=== PATIENT | male | born 1955 | race Caucasian/White ===

== ENCOUNTER 2017-12-25 06:14 | Emergency (ER) | payer OTHER, SELFPAY ==
[2017-12-25 06:15] VITALS: BP 132/76; PULSE 101; RESP 20; TEMP 36.9; O2SAT 94; BMI 28.1
[2017-12-25 06:33] LABS: Bacteria 0 SEEN /hpf (None Seen); Mucous, Urine 0 SEEN /hpf (<or=2+); Squamous Epithelial Cells - UA 0 SEEN /hpf (0-5)
[2017-12-25 06:37] LABS: Color, Urine Red (Yellow); Glucose, Dipstick Normal (Normal); Ketone-Dipstick 15 mg/dl (Negative); Leukocyte Esterase-Dipstick 100 /ul (Negative); Nitrite-Dipstick Negative (Negative); Occult Blood-Urine 250 /ul (Negative); Protein-Dipstick 500 mg/dl (Negative); Urine Bilirubin Dipstick Negative (Negative); Urine Clarity Turbid (Clear); Urine Urobilinogen Normal (Normal)
[2017-12-25 06:44] LABS: Red Blood Cells-Urine > 100 SEEN /hpf (0-5); White Blood Cells >100 SEEN /hpf (0-5)
--- NOTE | 2017-12-25 07:09 | ED.VISSUMM ---
- ER Visit Summary Date of Service: 12/25/17 Chief Complaint: Bleeding with urination History of Present Illness: The patient is a 62 M past medical history of [id number] diabetes and hypertension. Prior appendectomy. Denies any prior urologic surgeries. He states at 3:00 this morning he started having bloody urine. And difficulty urinating. States he did not feel like he can empty his bladder and had to urinate every 20 minutes or so. Also said he was having painful urination. Denies any recent instrumentation. He is on no blood thinners besides a baby aspirin. Denies any bruising, bloody nose, melena or rectal bleeding. Physical Examination: Well-appearing middle-age male. Vital signs are stable afebrile. H EENT exam unremarkable neck nontender lungs there to auscultation bilaterally. Heart regular rhythm no murmur. Abdomen is soft nondistended normal bowel sounds. Mildly tender over the bladder. Not significantly distended. Sternal exam unremarkable nontender. Moving all 4 extremities. No edema. Neurologically is awake and alert with no focal motor deficits. Test Results: UA showed greater than 100 white cells and greater than 100 red blood cells. No bacteria. No nitrites. A culture was sent. Emergency Department Course and Treatment: Nurse place a 22 [place]ri[place] Sorto catheter irrigated until clear. Patient tolerated well. Currently is doing well repeat exam at 0703. a.m. Treatment Plan: Acute gross hematuria with secondary to possible UTI. Urine culture was sent. He will be started on Keflex 4 times daily for 7 days. He will follow-up with Dr. Herrera or a urologist in the [place] system for further evaluation. He understands if he has continued gross hematuria he may need cystoscopy. Disposition: Discharge Impression: Acute gross hematuria secondary to UTI This note was generated with [facility] dictation software. It may contain incorrect words, spelling, and punctuation that were not noted in review of the chart prior to signing ED Disposition - Plan for ED Patient: Chief Complaint: Complaint Referrals: [facility] [Primary Care Provider] -
--- NOTE | 2017-12-25 07:12 | ED.DCSUM_ITS ---
- ER Visit Summary Date of Service: 12/25/17 Chief Complaint: Bleeding with urination History of Present Illness: The patient is a 62 M past medical history of non- insulin-dependent diabetes and hypertension. Prior appendectomy. Denies any prior urologic surgeries. He states at 3:00 this morning he started having bloody urine. And difficulty urinating. States he did not feel like he can empty his bladder and had to urinate every 20 minutes or so. Also said he was having painful urination. Denies any recent instrumentation. He is on no blood thinners besides a baby aspirin. Denies any bruising, bloody nose, melena or rectal bleeding. Physical Examination: Well-appearing middle-age male. Vital signs are stable afebrile. H EENT exam unremarkable neck nontender lungs there to auscultation bilaterally. Heart regular rhythm no murmur. Abdomen is soft nondistended normal bowel sounds. Mildly tender over the bladder. Not significantly distended. Sternal exam unremarkable nontender. Moving all 4 extremities. No edema. Neurologically is awake and alert with no focal motor deficits. Test Results: UA showed greater than 100 white cells and greater than 100 red blood cells. No bacteria. No nitrites. A culture was sent. Emergency Department Course and Treatment: Nurse place a 22 [place] Sorto catheter irrigated until clear. Patient tolerated well. Currently is doing well repeat exam at 0703. a.m. Treatment Plan: Acute gross hematuria with secondary to possible UTI. Urine culture was sent. He will be started on Keflex 4 times daily for 7 days. He will follow-up with Dr. Herrera or a urologist in the [place] system for further evaluation. He understands if he has continued gross hematuria he may need cystoscopy. Disposition: Discharge Impression: Acute gross hematuria secondary to UTI This note was generated with [facility] dictation software. It may contain incorrect words, spelling, and punctuation that were not noted in review of the chart prior to signing ED Disposition - Plan for ED Patient: Chief Complaint: Complaint Referrals: [facility] [Primary Care Provider] -
--- NOTE | 2017-12-25 07:12 | ED.DEP ---
ED Disposition - Plan for ED Patient: Disposition: Home or Assisted Living Chief Complaint: Complaint Instructions: ED UTI Cystitis Male, What is Hematuria? Prescriptions: Cephalexin [Keflex] 500 mg PO Q6 #30 cap Referrals: Toribio Be MD [STAFF PHYSICIAN] - As soon as possible Additional Instructions: Plenty fluids. Call follow-up with Dr. Bossman Herrera of urology or see a urologist in [place] system. The blood may be from a urinary tract infection it could also be from other causes. The continues you will need a cystoscopy of your bladder. A urine culture was sent and should return in 1-2 days. He will be started on antibiotic Keflex 1 pill 4 times a day till gone for the possible UTI.
--- NOTE | 2017-12-25 07:15 | DCINST.ED_ITS ---
ED Disposition - Plan for ED Patient: Disposition: Home or Assisted Living Chief Complaint: Complaint Instructions: ED UTI Cystitis Male, What is Hematuria? Prescriptions: Cephalexin [Keflex] 500 mg PO Q6 #30 cap Referrals: Toribio Be MD [STAFF PHYSICIAN] - As soon as possible Additional Instructions: Plenty fluids. Call follow-up with Dr. Bossman Herrera of urology or see a urologist in [place] system. The blood may be from a urinary tract infection it could also be from other causes. The continues you will need a cystoscopy of your bladder. A urine culture was sent and should return in 1-2 days. He will be started on antibiotic Keflex 1 pill 4 times a day till gone for the possible UTI.
[2017-12-25] MEDS: Cephalexin 250 MG Capsule 500 MG PO (07:18)
== END 2017-12-25 07:21 | disposition home or self-care (01) ==
PROVIDERS: Emergency Provider Emergency Medicine
DX: R31.0 Gross hematuria (principal); N39.0 Urinary tract infection, site not specified; I10 Essential (primary) hypertension; E11.9 Type 2 diabetes mellitus without complications; Z72.0 Tobacco use; Z79.84 Long term (current) use of oral hypoglycemic drugs; Z79.82 Long term (current) use of aspirin; Z79.899 Other long term (current) drug therapy
CPT/HCPCS: 51702; 81001; 87086; 87088; 87186; 99283; A4216

== ENCOUNTER 2017-12-26 11:49 | Emergency (ER) | payer OTHER, SELFPAY ==
[2017-12-26 11:52] VITALS: BP 107/61; PULSE 129; RESP 17; TEMP 36.5; O2SAT 95; BMI 27.1
--- NOTE | 2017-12-26 12:04 | ED.VISSUMM ---
- ER Visit Summary Date of Service: 12/26/17 Chief Complaint: Need for Sorto catheter removal [] History of Present Illness: The patient is a 62 M [presents to the emergency department requesting to have his Sorto catheter removed. Patient states that he was seen in the emergency department 2 days ago and had a Sorto catheter placed due to hematuria and possible urinary tract infection. Patient was started on Keflex. Patient states that his urine has cleared up and no longer has hematuria. Patient denies dysuria. Patient denies fever. He denies vomiting. He denies back pain.] Physical Examination: HEENT-PERRLA, EOMI. Cranial nerves II through XII grossly intact. TMs clear. Mucous membranes moist. No adenopathy. Cardiovascular-regular rate and rhythm without murmur or ectopy Lungs-clear to auscultation, chest wall stable without crepitus or subcu emphysema Abdomen-normoactive bowel sounds, soft, nontender, no rebound or rigidity, no peritoneal signs. exam-patient has Sorto catheter in place and there is no evidence of blood in the Sorto bag. Extremities-intact ?4, normal range of motion, normal pulses, atraumatic[] Test Results: [None indicated] Emergency Department Course and Treatment: [Sorto catheter was removed. Patient did not want to wait in the emergency department to see if he can void on his own and states that if he has any issues he will return to the ER.] I reviewed patient's urine culture results which did grow out E. coli. Treatment Plan: [Patient to continue with his Keflex until the course has been finished.] Disposition: [Discharged home in stable condition] Impression: [Sorto catheter removal UTI Hematuria-resolved] This note was generated with [employer] dictation software. It may contain incorrect words, spelling, and punctuation that were not noted in review of the chart prior to signing ED Disposition - Plan for ED Patient: Chief Complaint: Sorto C/O Referrals: [facility] [Primary Care Provider] -
--- NOTE | 2017-12-26 12:06 | ED.DEP ---
ED Disposition - Plan for ED Patient: Chief Complaint: Sorto C/O Instructions: ED UTI Cystitis Male Referrals: [place] [Primary Care Provider] - As Needed
[2017-12-26 12:16] VITALS: PULSE 108; RESP 17; O2SAT 98
== END 2017-12-26 12:34 | disposition home or self-care (01) ==
PROVIDERS: Emergency Provider Emergency Medicine
DX: N39.0 Urinary tract infection, site not specified (principal); Z46.6 Encounter for fitting and adjustment of urinary device; R31.9 Hematuria, unspecified; E11.9 Type 2 diabetes mellitus without complications; I10 Essential (primary) hypertension; Z72.0 Tobacco use; Z79.84 Long term (current) use of oral hypoglycemic drugs; Z79.82 Long term (current) use of aspirin; Z79.899 Other long term (current) drug therapy
CPT/HCPCS: 99282

== ENCOUNTER → 2021-04-28 07:52 | Outpatient (CLI) | payer OTHER, SELFPAY ==
--- NOTE | 2021-04-28 07:55 | AAAS_ITS ---
Reason For Study: screening, nicotine dependency Aorta Measurements Aorta Doppler Measurements Proximal aorta measures1.86 x 1.87cm. in cross- Peak systolic flow velocities within the proximal sectional axis. aorta measure 66.3 cm/sec. Proximal aorta measures1.78cm. in longitudinal Peak systolic flow velocities within the mid aorta axis. measure 68.5 cm/sec. Mid aorta measures1.49 x 1.44cm. in cross- Peak systolic flow velocities within the distal sectional axis. aorta measure 55.3 cm/sec. Mid aorta measures1.38cm. in longitudinal axis. Distal aorta measures1.7 x 1.7cm. in cross- sectional axis. Distal aorta measures1.73cm. in longitudinal axis. Left Iliac Artery Left iliac artery measures .51 x .71 cm. in the cross-sectional axis. Left iliac artery measures .71 cm. in the longitudinal axis. Peak systolic velocity in the left iliac artery measures 99.2 cm/sec. Right Iliac Artery Right iliac artery measures .69 x .81 cm. in the cross-sectional axis. Right iliac artery measures .77 cm. in the longitudinal axis. Peak systolic velocity in the right iliac artery measures 48.7 cm/sec. Procedure Aorta IVC Iliac vasculature or bypass grafts 81955. The exam was diagnostic. Exam performed in department. VL/AAA Screening Interpretation Summary Maximal aortic dimensions approximately at 1.86 x 1.87 cm in diameter. Normal a rterial flow Left common iliac 0.51 x 0.71 cm with normal flow Right common iliac 0.69 x 0.81 cm with normal flow Ordering Physician: BRAXTON SINGLETARY Performed By: Jenaro Pyle RVT
== END ==
DX: Z13.6 Encounter for screening for cardiovascular disorders (principal); F17.220 Nicotine dependence, chewing tobacco, uncomplicated
CPT/HCPCS: 76706